=== PATIENT | male | born 1975 | race Caucasian/White ===

== ENCOUNTER 2022-06-27 12:57 | Inpatient (IN) | payer MEDICARE, OTHER ==
[~2022-06-27] VITALS: Ht 167.6 cm; Wt 72.6 kg
[2022-06-27] MEDS ORDERED: IV NS 0.9% 1,000 ML BAG IV ONE (13:00)
--- NOTE | 2022-06-27 13:06 | NUR ---
CALL FROM PUMA ALVAREZ, PATIENT WAS DISCHARGED AND WAITING FOR HIS RIDE TO GO BACK TO HIS B & C WHEN HE C/O SYNCOPE, LIVES IN [address] , [facility]&.
--- NOTE | 2022-06-27 13:31 | NUR ---
PT RETURNED FROM RADIOLOGY
[2022-06-27 13:32] LABS: BASOPHILS % (AUTO) 0.7 % (0.0-2.0); EOSINOPHILS % (AUTO) 3.1 % (0.0-6.0); HEMATOCRIT 40 % (39-51); HEMOGLOBIN 12.9 g/dL (13.5-17.5); LYMPHOCYTES # (AUTO) 2.1 K/uL (0.8-4.8); MEAN CORPUSCULAR HGB CONC 32 g/dl (31.0-36.0); MEAN CORPUSCULAR VOLUME 83 fL (80-96); MONOCYTES # (AUTO) 0.5 K/uL (0.1-1.30); NEUTROPHILS # (AUTO) 3.6 K/uL (1.8-8.9); NEUTROPHILS % (AUTO) 56.2 % (43.0-81.0); PLATELET COUNT (AUTO) 266 K/uL (150-450); RED BLOOD CELL COUNT(AUTO) 4.81 MIL/uL (4.5-6.0); WHITE BLOOD COUNT (AUTO) 6.5 K/uL (4.3-11.0)
[2022-06-27 13:40] LABS: CALCIUM, SERUM 9.4 mg/dL (8.5-10.1); CARBON DIOXIDE 27 mmol/L (21-32); CHLORIDE 104 mmol/L (98-107); GLUCOSE 116 mg/dL (74-106); POTASSIUM 4.3 mmol/L (3.5-5.1); SODIUM SERUM 138 mmol/L (136-145); UREA NITROGEN, BLOOD 17 mg/dL (7-18)
[2022-06-27 13:52] LABS: ALANINE AMINOTRANSFERASE 21 U/L (12-78); ALBUMIN 3.7 g/dL (3.4-5.0); ALKALINE PHOSPHATASE 77 U/L (46-116); ASPARTATE AMINOTRANSFERASE 11 U/L (15-37); BILIRUBIN,DIRECT 0.1 mg/dL (0.0-0.2); BILIRUBIN,TOTAL 0.3 mg/dL (0.2-1.0)
[2022-06-27] MEDS ORDERED: POLY15DR40 EACHEYE (14:02)
[2022-06-27] MEDS ORDERED: OLAN5TAB3 PO (14:02)
[2022-06-27] MEDS ORDERED: SPIR25TA6 PO (14:02)
[2022-06-27] MEDS ORDERED: LISI10TA29 PO (14:02)
[2022-06-27] MEDS ORDERED: AMLO-213 PO (14:02)
--- NOTE | 2022-06-27 14:15 | NUR ---
[facility] CALLED TRAINS SERVICE CONDUCTOR PAGED.
[2022-06-27] MEDS ORDERED: Z GUARD REMEDY 4 OZ OINT TP PRN (15:00)
[2022-06-27] MEDS ORDERED: ACETAMINOPHEN 325 MG TABLET PO PRN (15:00)
[2022-06-27] MEDS ORDERED: ONDANSETRON HCL/PF 4 MG/2 ML VIAL IVP PRN (15:00)
--- NOTE | 2022-06-27 16:36 | NUR ---
room 108
--- NOTE | 2022-06-27 16:43 | NUR ---
report given to Muriel RN to assume care.
--- NOTE | 2022-06-27 18:20 | NUR ---
COTTON INSPECTOR NOTE ADMIT 47 YEAR OLD MALE TO ROOM 108 TELE MONITORING ALERT ORIENTED X2-3 VERBALLY RESPONSIVE ADMITTING DIAGNOSIS IS HYPOTENSION NEAR SYNCOPE,IV SITE IS ON LAC AND RAC #20 INTACT PATENT SAFETY MEASURE IMPLEMENT BED IN LOW POSITION AND LOCKED CALL LIGHT WITHIN REACH,CONTINUE TO MONITOR.
--- NOTE | 2022-06-27 18:23 | NUR ---
patient wheeled via gurney accompanied by rn in no distress. RN assigned at bedside to assume care.
[2022-06-27] MEDS: IV NS 0.9% 1,000 ML IV PRN (18:25)
[2022-06-27 18:39] VITALS: BP 123/84
[2022-06-27] MEDS: OLANZAPINE 5 MG TABLET PO SCH (18:49)
--- NOTE | 2022-06-27 18:52 | NUR ---
RN NOTE PATIENT ON ECO,CAROTIC ARTERY US REPORT GIVEN FOR NEXT COMING SHIFT FOR CONTINUATION OF CARE.
--- NOTE | 2022-06-27 19:41 | NUR ---
noc rn opening received patient in bed, alert and oriented, Macedonian speaking. eating at this time. no s/s of apparent distress on room air. no c/o pain at this time. tele monitor reading sr with 84 bpm. iv ns running at 100mls/hr in r. ac #20g and l.ac #18g on saline lock. re-oriented and encouraged with the use of call light. safety in place. will continue with patient's plan of care.
[2022-06-27 20:00] VITALS: BP 129/75
[2022-06-28] VITALS: BP 123/83
[2022-06-28 04:00] VITALS: BP 115/80
[2022-06-28] MEDS: IV NS 0.9% 1,000 ML IV PRN ×2 (04:30→15:14)
[2022-06-28 06:05] LABS: BASOPHILS # (AUTO) 0.1 K/uL (0.0-0.2); BASOPHILS % (AUTO) 0.8 % (0.0-2.0); EOSINOPHILS % (AUTO) 3.4 % (0.0-6.0); HEMATOCRIT 39 % (39-51); HEMOGLOBIN 12.7 g/dL (13.5-17.5); LYMPHOCYTES % (AUTO) 30.4 % (20.0-44.0); MEAN CORPUSCULAR HGB CONC 33 g/dl (31.0-36.0); MEAN CORPUSCULAR VOLUME 83 fL (80-96); MONOCYTES # (AUTO) 0.4 K/uL (0.1-1.30); NEUTROPHILS # (AUTO) 3.8 K/uL (1.8-8.9); NEUTROPHILS % (AUTO) 59.4 % (43.0-81.0); PLATELET COUNT (AUTO) 256 K/uL (150-450); RED BLOOD CELL COUNT(AUTO) 4.72 MIL/uL (4.5-6.0); WHITE BLOOD COUNT (AUTO) 6.5 K/uL (4.3-11.0)
--- NOTE | 2022-06-28 06:21 | NUR ---
noc rn closing patient in bed with eyes closed, easy to arouse, covering himself with blankets. series of responding to internal stimuli. ambulates with steady gait. no s/s of apparent distress on room air. no c/o pain nor at this time. all needs attended. iv ns running @100mls/hr at this time. tele monitor reading sinus rhythm with 75 bpm. will endorse to morning shift rn for continuity of patient care.
[2022-06-28 06:57] LABS: ALBUMIN 3.5 g/dL (3.4-5.0); BILIRUBIN,TOTAL 0.4 mg/dL (0.2-1.0); CALCIUM, SERUM 9.1 mg/dL (8.5-10.1); CREATININE 0.8 mg/dL (0.6-1.3); POTASSIUM 4.1 mmol/L (3.5-5.1); TOTAL PROTEIN, SERUM 6.8 g/dL (6.4-8.2)
--- NOTE | 2022-06-28 07:27 | NUR ---
RN OPENING NOTE RECEIVED PATIENT IN BED ASLEEP, BREATHING EVENLY AND UNLABORED. TELE MONITOR READING SINUS RYTHYM. URINAL NOTED AT BEDSIDE. IV ACCESS ON LEFT ANTECUBITAL 18 GAUGE AND RIGHT ANTECUBITAL 20 GAUGE RUNNING NORMAL SALINE AT 100 MLS/HR. SAFETY MEASURES IMPLEMENTED, WILL CONTINUE PLAN OF CARE AND ANTICIPATE NEEDS.
[2022-06-28 08:00] VITALS: BP 139/65
[2022-06-28] MEDS: OLANZAPINE 5 MG TABLET PO SCH ×2 (08:15→16:45)
[2022-06-28 12:00] VITALS: BP 102/80
[2022-06-28 16:00] VITALS: BP 109/69
--- NOTE | 2022-06-28 18:29 | NUR ---
RN CLOSING NOTE PATIENT IN BED ASLEEP BUT EASILY AROUSABLE, BREATHING EVENLY AND UNLABORED. TELE MONITOR READING SINUS RYTHYM. URINAL NOTED AT BEDSIDE. IV ACCESS ON LEFT WRIST 24 GAUGE RUNNING NORMAL SALINE AT 100 MLS/HR. SAFETY MEASURES IMPLEMENTED. ALL DUE MEDICATIONS ADMINISTERED. WILL ENDORSE TO NIGHTSHIFT RN FOR CONTINUATION OF CARE.
--- NOTE | 2022-06-28 19:20 | NUR ---
RN NOTE Patient in bed, AAO X 3, in no acute distress, saturation at 98% on 2L via NC, SR on the monitor, HR is 79. IV line at R wrist 24g patent and flushing well with NS infusing at 100 ml/hr. Patient is continent and able to use urinal. Safety measures in place, bed is locked and at lowest position, bed alarm is on, side rails up x 2, call light within reach of patient. Will cont to monitor and reassess
[2022-06-28 20:00] VITALS: BP 122/75
[2022-06-29] VITALS: BP 127/79
[2022-06-29] MEDS: IV NS 0.9% 1,000 ML IV PRN (02:27)
[2022-06-29 04:00] VITALS: BP 134/85
--- NOTE | 2022-06-29 07:33 | NUR ---
MEMBER SERVICES COORDINATOR OPENING NOTES: RECEIVED PATIENT IN BED, ASLEEP BUT EASILY AROUSES TO VOICE AND TACTILE STIMULI. PATIENT IS ALERT, ORIENTED X 2 AND SAID THAT HE GOES BY THE NAME OF MOISES GHOSH. NO SOB NOTED, BREATHING EVEN AND UNLABORED. ON SR ON TELE MONITOR WITH HR OF 69. PATIENT HAS IV ACCESS ON RIGHT WRIST INFUSING WITH NS @ 100 ML/HR, IV SITE PATENT, NO S/S INFILTRATION NOTED. CALL LIGHT WITHIN REACH, BED LOCKED AND IN LOWEST POSITION. CALL LIGHT WITHIN REACH. ALL SAFETY MEASURES IMPLEMENTED. WILL CONTINUE TO MONITOR PATIENT THROUGHOUT SHIFT.
[2022-06-29 08:00] VITALS: BP 124/83
[2022-06-29] MEDS: OLANZAPINE 5 MG TABLET PO SCH ×2 (08:37→20:12)
--- NOTE | 2022-06-29 11:53 | NUR ---
Pipe Crew Foreman Consult KAYCE consult requested for pt. was transferred from [facility] to [facility] and may want to return. Pt. is a 47 y.o. male who was admitted for complaints of dizziness and hypotension. KAYCE met with pt. at bedside. The pt. appears unkempt and is alert and orientated x4. Pt. made avoidant eye contact and remained calm and cooperative throughout assessment. The patient had depressed mood and flat affect. KAYCE assessed for SI/ HI (suicidal/ homicidal ideation) in which pt. denied any plans, means, or intent. During assessment, pt. stated he had no family, or persons of contact and wanted to return to his home in [place] and wanted to go to the airport. Pt. stated he is independent with ambulation and is not receiving any financial assistance. Per pt. patient report, pt. did not have a hx of drug use. Pt. reported no hx of psychiatric dx and no visual or auditory hallucinations. DC plan: When asked about pt.s plans after being discharged pt. stated he was going to [place]. KAYCE encouraged pt. to go to the airport and purchase a flight and pt. expressed understanding. KAYCE offered alf placement and pt. was agreeable. KAYCE provided pt. with TAP card and directions to go to [facility] ([address] [place] [address]). Pt is agreeable to plan. KAYCE provided pt. with alf resources and mental health resources in which pt. accepted them. Pt. signed the homeless waiver and was placed in his chart. KAYCE discussed discharge plan with nurse and she was agreeable. Year-round shelters: [facility] [place] [address] [place], [place] [phone] ; [facility] [place] [address] [place] [address]; [facility] [place] [facility]. [facility] [address] Hygiene: [facility]: [address] [place] ; [facility] [address] [facility] ; [facility] [address] Sam[address] . Food Resources: [place] [facility] at [facility]- [address]; Meet Each Need with Dignity (MEND) [address]. Fl[place]agan; [facility] [address]; [facility] [address] [facility] Henry. Mental Health resources provided: [facility] [address] [place] [address] ; [facility] [address] [facility] [address], [place], [place] [phone] ; [facility] [address] [facility] [place], [place] [phone] ; [facility] [place], [place] [address] Healthcare Clinics: [facility] [address] [facility], [address] [place]. [place] ; [facility] [address] [facility] [address] [place] [address]; [facility] [place] [address] [place] [address] [phone]) [phone] Counseling--[facility] [address], [address] [place], [place] [address] (Specializes in in-depth psychotherapy for emotional distress: anxiety, depression, interpersonal conflicts, life transitions, childhood abuse) [facility] [address] [place], [place] [phone] (Assist with solving problem marital difficulties, separation & divorce, aging parents, & grief, chronic & terminal illness) [facility] [address] [place] [address] (Deal with loss & grief, anxiety, marital difficulties) Homebound/Mental Health Services [address] [facility], [address] [place], [place] [address] (Provide in-home mental services to people who are incapable of leaving their homes) [facility] Elder[facility] Senior Service/Resource Center [address] [place] [address] [facility] [address] [place] [facility] [place] [address] PSYCHIATRIC OUTPATIENT SERVICES [facility] Partial Hospitalization and Intensive Outpatient Program (Managed Care and [place] Only)[address] [facility] [phone] [facility] Partial Hospitalization and Outpatient Idpsliv[address] [place], [place] [phone] [facility] [place] Liz34013 [facility]. [address] [place], [place] [phone] [facility] Partial Hospitalization and Outpatient Ngihshw83973 eliSt. George Regional HospitalErick Pinedo, [phone] Substance Abuse resources provided included: [facility] Substance Abuse Self-Helpline ([facility]) ; [facility] [address] [facility]. [place] [address] ; [facility] [address] [facility] [address] ; [facility] [address] [address] ; [facility] [address] [facility] [phone] ; [facility] 4940 [facility] [phone] ; [facility] [address] [facility] [address] ; [facility] Substance Abuse Helpline([facility])-[facility] ; [facility] ; [facility]; [facility]; [facility] [place]; [facility] Samy ; [facility] [place]; [facility] [place]; [facility], [facility]. [place]; Alcoholics Anonymous -SFV; Nx-Mzvm-Hrseqiz ; Marijuana Anonymous -SFV; Narcotics Anonymous www.na.org;
[2022-06-29 12:00] VITALS: BP 138/77
[2022-06-29 16:00] VITALS: BP 129/86
--- NOTE | 2022-06-29 16:53 | NUR ---
DISCHARGE INSTRUCTIONS GIVEN TO THE PATIENT AND REITERATED THE BUS INSTRUCTIONS PROVIDED FOR THE PATIENT BY ARSEN LEGISLATIVE ANALYST BUT PATIENT DOES NOT SEEM TO UNDERSTAND THE INSTRUCTIONS. GOT THE SAUL FOUNDRY METALLURGIST IN THE PATIENTS OWN LANGUAGE OF SAO TOMEAN, SPOKE WITH SAO TOMEAN FOUNDRY METALLURGIST DORIS ID # [id number] AND EXPLAINED THE BUS INSTRUCTIONS ONE AT A TIME BUT PATIENT KEPT SAYING "I DON'T KNOW" . SPOKE WITH PURCHASING AND CLAIMS SUPERVISOR STEFAN AND REQUESTED FOR A TAXI VOUCHER. CHIROPRACTOR SOLE PRACTITIONER CALLED AND CONFIRMED PATIENT'S TUB PULLER AND THE ACTUAL COST OF $45.00. CHARGE NURSE AND PURCHASING AND CLAIMS SUPERVISOR MADE AWARE. PATIENT INFORMED OF THE TRANSPORTATION ARRANGED FOR HIM VIA TAXI. PATIENT AGREED AND UNDERSTOOD. GAVE PATIENT'S PACKET BUT PATIENT REFUSED, EXPLAINED TO HIM THAT HE NEEDED TO TUB PULLER THE PRESCRIPTION BUT PATIENT SAID "NO"
--- NOTE | 2022-06-29 17:41 | NUR ---
TOOK PATIENT'S IV, HUB NOTED TO BE INTACT, NO SEVERE BLEEDING NOTED. TOWEL INSPECTOR WAS TAKEN OFF THE PATIENT WELL HIS ID BAND. PATIENT WAS TAKEN TO THE MARINE GEOLOGIST TO BE PICKED UP BY THE TAXI. PATIENT IN NO APPARENT DISTRESS
[2022-06-29 20:00] VITALS: BP 140/95
--- NOTE | 2022-06-29 20:17 | NUR ---
2017 ARGENIS Arteaga notified that patient's discharge was cancelled due to no taxi available to take patient to destination. Patient waited in lobby for two hours for taxi and per him he does not know how else to get home. AM charge nurse called [facility] and was told that no taxi available at all to pick pack worker patient. Nurse cafeteria supervisor made aware and decided to keep patient in the unit for tonight. CM to follow up discharge in AM.
--- NOTE | 2022-06-29 20:20 | NUR ---
2020 Patient refused peripheral IV insertion. ARGENIS Arteaga made aware unable to re start IV fluids.
[2022-06-30 04:00] VITALS: BP 123/71
--- NOTE | 2022-06-30 06:59 | NUR ---
RN NOTES PATIENT REMAINS STABLE NO SIGNIFICANT CHANGES IN HEALTH CONDITION. ALL DUE MEDS GIVEN OREDRED. PATIENT STILL REFUSED TO RE-INSERT IV. FOR D/C TODAY. WILL ENDORSED TO MORNING SHIFT FOR MORENITA
--- NOTE | 2022-06-30 08:16 | NUR ---
RN OPENING NOTE PATIENT RECEIVED IN BED, AO X 4, ABLE TO RESPONDS ALL STIMULI. IN NO ACUTE DISTRESS NOTED. RESPIRATORY EVEN AND UNLABORED ON ROOM AIR. SKIN IS WARM TO TOUCH, KEEP CLEAN/DRY. KEPT ELEVATED HOB FOR ENSURE AIRWAY AND ASPIRATION PRECAUTION, ALSO LOWEST POSITION OF THE BED, S/R UP X 2, BED ALARM IS ON AT ALL THE TIMES. ALL SAFETY PRECAUTION APPLIED. CALL LIGHT WITHIN REACH, WILL CONTINUE TO MONITOR.
[2022-06-30] MEDS: OLANZAPINE 5 MG TABLET PO SCH (08:24)
--- NOTE | 2022-06-30 08:30 | NUR ---
patient Addendum: 06/30/22 at 0934 by CHRIS PORTILLO RN error
--- NOTE | 2022-06-30 08:30 | NUR ---
PATIENT LEFT FACILITY AFTER EAT BREAKFAST. ALSO MEDICATION TAKEN WITH COMPLIANCE. IN NO ACUTE DISTRESS OBSERVED, IN STABLE CONDITION. PROVIDED BUS TICKET. PATIENT REFUSED TO TAKE VITAL SIGN THIS MORNING.
== END 2022-06-30 08:50 | DRG 74 ==
LOC: ER 13:07 → TELE1 17:08 → UNDODISIN 06-29 17:57 → MEDSG1 06-29 19:49
PROVIDERS: ADMIT Internal Medicine; ATTEND Internal Medicine
DX: G90.8 Other disorders of autonomic nervous system (principal); I10 Essential (primary) hypertension; Z20.822 Contact with and (suspected) exposure to COVID-19; Z79.899 Other long term (current) drug therapy; F29 Unspecified psychosis not due to a substance or known physiological condition; I95.89 Other hypotension
CPT/HCPCS: 36415; 70450-TC; 71045-TC; 80048-TC; 80053-TC; 80076-TC; 83605-TC; 83880; 84484-TC; 85025-TC; 85730-TC; 87081-TC; 93307-TC; 93880-TC; C9803; G0378; J7030